=== PATIENT | female | born 1985 | race Caucasian/White ===

== ENCOUNTER 2017-05-19 11:23 | Emergency (ER) | payer BC ==
[2017-05-19] MEDS: LIDOCAINE/MYLANTA 40 ML BTL PO (12:45)
[2017-05-19] MEDS: IBUPROFEN 800 MG TAB PO (12:45)
== END 2017-05-19 14:34 | disposition home or self-care (01) ==
LOC: FTE 11:23
DX: R07.89 Other chest pain (principal); J45.909 Unspecified asthma, uncomplicated; F17.210 Nicotine dependence, cigarettes, uncomplicated
CPT/HCPCS: 71045; 93005; 99284-25